=== PATIENT | female | born 1945 | race Two or more races ===

== ENCOUNTER 2024-03-06 00:09 | Emergency (ER) | payer OTHER, SELFPAY ==
[2024-03-06 00:20] VITALS: BP 149/78; PULSE 106; RESP 18; TEMP 37.3; O2SAT 97
--- NOTE | 2024-03-06 00:28 | PD.EDRME ---
Rapid Medical Screening Exam RME Arrival date/time: 03/06/24 00:09 79 year old female present to ED for c/o of rectal bleeding tonight I have greeted and performed a focused initial assessment of this patient. A comprehensive ED assessment and evaluation of the patient, analysis of all test results, and completion of the medical decision making process will be conducted by additional ED providers. Chief Complaint: General Adult/Misc Complain Vital signs: Vital Signs Temperature 99.2 F 03/06/24 00:20 Pulse Rate 106 H 03/06/24 00:20 Respiratory Rate 18 03/06/24 00:20 Blood Pressure 149/78 H 03/06/24 00:20 Pulse Oximetry (%) 97 03/06/24 00:20 Oxygen Delivery Method Room Air 03/06/24 00:20
[2024-03-06 01:08] LABS: Basophils % (Auto) 1 % (0-2.5); Eosinophils # (Auto) 0.2 Thou/mm3 (0.0-0.5); Eosinophils % (Auto) 5 % (0-10); Hematocrit 30.9 % (36.0-46.0); Immature Granulocytes % (Auto) 1 % (0-0); Immature Granulocytes Auto 0.02 Thou/mm3 (0.00-0.00); Lymphocytes # (Auto) 0.5 Thou/mm3 (1.0-4.8); Lymphocytes % (Auto) 12 % (10-50); Mean Corpuscular HGB Conc 35.6 g/dl (31.0-37.0); Mean Corpuscular Hemoglobin 32.2 pg (25.0-35.0); Mean Corpuscular Volume 90 fL (80-100); Monocytes # (Auto) 0.4 Thou/mm3 (0.0-0.8); Monocytes % (Auto) 9 % (0-12); Neutrophils # (Auto) 3.1 Thou/mm3 (1.8-7.7); Neutrophils % (Auto) 73 % (37-80); Nucleated Red Blood Cell % 0 /100 WBC (0); RDW Standard Deviation 47.5 fL (36.4-46.3); Red Blood Count 3.42 Miln/mm3 (4.00-5.20); White Blood Count 4.3 Thou/mm3 (3.6-11.0)
[2024-03-06 01:15] LABS: Platelet Count 68 Thou/mm3 (140-440); Slide Review Platelets confirmed
[2024-03-06 01:36] LABS: Alanine Aminotransferase 35 U/L (10-49); Albumin, Serum 3.4 gm/dL (3.4-4.8); Albumin/Globulin Ratio 1.1 (1.2-2.2); Alkaline Phosphatase 135 U/L (46-116); Anion Gap 7 (7-16); Aspartate Amino Transferase 49 U/L (0-34); BUN/Creatinine Ratio 12 Ratio (12-20); Bilirubin,Total 3.4 mg/dL (0.3-1.2); Blood Urea Nitrogen 12 mg/dL (9-23); Calcium 9.5 mg/dL (8.3-10.6); Chloride 107 mMol/L (98-107); Globulin 3.2 gm/dL (2.3-3.5); Glucose 203 mg/dL (74-106); Osmolality,Calculated 281 (275-295); Potassium 4.2 mMol/L (3.4-5.1); Sodium 138 mMol/L (136-145); Total Protein 6.6 gm/dL (5.7-8.2); eGFR 58 See Note
[2024-03-06 01:38] LABS: INR 1.3 (0.9-1.3); Partial Thromboplastin Time 26.8 Seconds (22.0-36.0); Prothrombin Time 13.5 Seconds (9.0-12.2)
[2024-03-06 04:27] VITALS: BP 137/77; PULSE 100; RESP 16; TEMP 36.9; O2SAT 96
--- NOTE | 2024-03-15 23:05 | EDNOTE_ITS ---
ED Abdominal Pain RME/HPI General Chief Complaint: Abdominal Pain Stated complaint: RECTAL BLEEDING Time seen by provider: 03/06/24 04:05 Arrival date/time: 03/06/24 00:09 RME / HPI RME / HPI narrative: 03/06/24 00:09 79 year old female present to ED for c/o of rectal bleeding tonight I have greeted and performed a focused initial assessment of this patient. A comprehensive ED assessment and evaluation of the patient, analysis of all test results, and completion of the medical decision making process will be conducted by additional ED providers. ------ Dr. Donovan?s Main ED Evaluation: 79yo breonna with pmhx DM, asthma presents to the ED for a chief complaint of rectal bleeding x tonight. 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 She denies any abdominal pain, N/V/D, fever, chills or any other associated symptoms. No known allergies. Related Data Home Medications ?Medication ?Instructions ?Recorded ?Confirmed alendronate 70 mg tablet 70 mg PO QWEEK 08/18/18 07/10/23 spironolactone 25 mg tablet 25 mg PO QDAY 08/18/18 07/10/23 atorvastatin 10 mg tablet 10 mg PO QDAY 07/10/23 07/10/23 furosemide 20 mg tablet 20 mg PO QDAY 07/10/23 07/10/23 metformin 500 mg tablet 500 mg PO QDAY 07/10/23 07/10/23 Previous Rx's ?Medication ?Instructions ?Recorded pantoprazole 20 mg tablet,delayed 20 mg PO QDAY #10 tabs 05/13/21 release (Protonix) hydrocortisone 2.5 % topical cream 1 applic VA QDAY PRN hemorrhoids 03/06/24 with perineal applicator #30 grams (Procto-Med HC) Allergies Allergy/AdvReac Type Severity Reaction Status Date / Time No Known Allergies Allergy Verified 09/02/23 12:20 Review of Systems Review of Systems Systems Reviewed: All systems reviewed, normal except as documented Past Medical History Past Medical History NEUROLOGIC: Negative Neurological Disorders or Seizures CARDIAC: Negative Cardiac Disorders, Hypercholesterolemia, Congestive Heart Failure or Hypertension RESPIRATORY: Positive Asthma; Negative Chronic Obstructive Pulmonary Disease (COPD) or Sleep Apnea GASTROINTESTINAL: Positive Gastrointestinal Disorders, Cirrhosis, Gastrointestinal Bleed and Esophageal Varices GENITOURINARY: Negative Genitourinary Disorders or Renal Disease REPRODUCTIVE: Positive Previous Pregnancies MUSCULOSKELETAL: Positive Musculoskeletal Disorders and Osteoporosis ENT: Positive Deafness ENDOCRINE: Positive Endocrine Disorders and Diabetes Mellitus Type 2; Negative Diabetes Mellitus Type 1 HEMATOLOGIC: Positive Anemia; Negative Blood Disorders or Clotting Problems PSYCHO/SOCIAL: Negative Depression or Anxiety OTHER HISTORY: Positive Blood Transfusions; Negative Autoimmune Disease, Falls, Blood Transfusion Reaction, Anesthesia Reactions, Organ Transplant, Chemotherapy, Radiation Therapy, Hyperbaric Therapy, MRSA, Chicken Pox or Cancer Family History FAMILY HISTORY: Negative Family Psychiatric Problems, Family Respiratory Disorders, Family Cardiac Disorders, Family Gastrointestinal Problems, Family Cancer, Family Surgery or Family Anesthesia Reaction Surgical History SURGICAL: Positive Ear Surgery; Negative Cardiac Surgery, Endocrine Surgery, Abdominal Surgery, Nephrectomy or Organ Transplant Social History SMOKING STATUS: Never smoker ED Exam Narrative Physical exam: GENERAL APPEARANCE: alert and oriented x 4, well-developed, well-nourished, no acute distress HEENT: Normocephalic, atraumatic; pupils equal, round, reactive to light; EOMI; mucous membranes pink, moist; oropharynx clear NECK: Supple LUNGS: CTABL; no wheezes, no rales, no rhonchi HEART: Regular rate, regular rhythm; normal S1, S2; no murmurs ABDOMEN: mildly distended; normal BS; soft, no tenderness, no guarding, no rebound; no masses, no organomegaly, no hernia BACK: no CVA tenderness RECTAL: Manager Of Distribution present. One external hemorrhoid that is non-thrombosed. Some skin tags noted, but no rectal bleeding. EXTREMITIES: atraumatic; no edema NEUROLOGIC: awake; alert and oriented x4; cranial nerves II-XII grossly intact; no focal sensory or motor deficits PSYCHIATRIC: appropriate mood and affect SKIN: warm, dry, mild jaundice; no rashes Course Quality Measures none Orders Category Date Time Status CBC Stat Lab 03/06/24 00:41 Completed CMP [Comprehensive Metabolic Panel] Stat Lab 03/06/24 00:41 Completed INR [Prothrombin Time with INR] Stat Lab 03/06/24 00:41 Completed PTT [Partial Thromboplastin Time] Stat Lab 03/06/24 00:41 Completed Vital Signs Vital signs: Vital Signs Temperature 99.2 F 03/06/24 00:20 Pulse Rate 106 H 03/06/24 00:20 Respiratory Rate 18 03/06/24 00:20 Blood Pressure 149/78 H 03/06/24 00:20 Pulse Oximetry (%) 97 03/06/24 00:20 Oxygen Delivery Method Room Air 03/06/24 00:20 Pulse ox is 97% on room air, which is normal according to my interpretation. Abdominal Pain MDM Patient data External records reviewed:: [facility] previous records (Per chart review, patient was seen here on 09/02/23 for shortness of breath.) Clinical information provided by:: patient Social determinants that could affect healthcare access:: none Patient has the following chronic illnesses:: DMII, asthma How is presenting disease/condition affected by chronic disease/condition?: uneffected by Evaluation data The following diagnostics were reviewed and interpreted by me:: lab results Lab and/or radiology exams considered but not ordered:: none Interpretation Summary: WBC count is normal, HnH is stable at 11.0/30.9, Glucose is elevated at 203, Total Bilirubin is elevated at 3.4, according to my interpretation. Medications / Prescriptions Medications or Prescriptions considered but not ordered:: none Medication administrations:: none Consultations Consultation(s) initiated? (list below): Yes Consultation #1 (Physician, Specialty, Details): Discussed case with [Dr. Conway] from [GI] regarding [consultation]. Discussed patients ED course, exam findings, labs, and radiology results. States the patient can follow-up in his office in a week. Diagnosis Differential diagnosis abdominal pain: gastroenteritis and other (lower GI bleed, hemorrhoids, colitis) Most likely diagnosis given after review of the tests above:: see below Admission Indicated Admission indicated?: not indicated Explain why admission is indicated or not indicated:: Patient is stable for outpatient follow-up. Admission Request Was there a request for admission?: No Disposition Plan Disposition Plan: Discharge Discharge Attestation Discharge Attestation: The patient and all family members were given an opportunity to ask questions and understood the discharge instructions. Discharge instructions specifically effects, indications for sooner follow up or return to the emergency department, and the expected course of current diagnosis. Patient condition: Stable Discharge Plan Plan Patient Disposition: HOME (Self Care) Prescriptions/Referrals Prescriptions/Med Rec: New hydrocortisone [Procto-Med HC] 2.5 % cream with perineal applicator 1 applic VA QDAY PRN (Reason: hemorrhoids) Qty: 30 0RF No Action alendronate 70 mg Tablet 70 mg PO QWEEK Rx Instructions: on thursday spironolactone 25 mg Tablet 25 mg PO QDAY pantoprazole [Protonix] 20 mg tablet,delayed release (DR/EC) 20 mg PO QDAY Qty: 10 0RF metformin 500 mg tablet 500 mg PO QDAY Patient Comments: TAKE 1 TABLET BY MOUTH ONCE A DAY WITH A MEAL atorvastatin 10 mg tablet 10 mg PO QDAY Patient Comments: TAKE 1 TABLET BY MOUTH ONCE A DAY furosemide 20 mg tablet 20 mg PO QDAY Patient Comments: TOME 1 TABLETA POR LA BOCA SAGE VEZ AL BLAINE CUANDO SE NECESITE Referrals: Opal Conway MD [Primary Care Provider] - In 1 week Problem List Clinical Impression: Hemorrhoids, Rectal bleeding, Cirrhosis, Abdominal distension, Pedal edema Patient/Caregiver Discharge Instructions Education Materials: ED Hemorrhoids Print Language: Urdu Stand Alone Forms: Chantelle Award Info., Patient Portal Info Letter
== END 2024-03-06 04:44 | disposition home or self-care (01) ==
PROVIDERS: Physician Assistant; Emergency Provider Emergency Medicine; PCP Specialist
DX: K62.5 Hemorrhage of anus and rectum (principal); K64.9 Unspecified hemorrhoids; K74.60 Unspecified cirrhosis of liver; R60.0 Localized edema
CPT/HCPCS: 36415; 80053; 85025; 85610; 85730; 99283

== ENCOUNTER → 2024-08-10 | Outpatient (CLI) | payer OTHER, SELFPAY | END | disposition home or self-care (01) | LOC: COPL 14:35 | PROVIDERS: PCP Family Medicine; Referring Provider Specialist; Visit Provider Specialist | DX: K75.81 Nonalcoholic steatohepatitis (NASH) (principal); K74.69 Other cirrhosis of liver | CPT/HCPCS: 36415; 82105 ==

== ENCOUNTER 2024-09-09 11:15 | Day surgery (SDC) | payer OTHER, SELFPAY ==
[2024-09-09] VITALS (8 sets, daily range): BP systolic 122–153; BP diastolic 57–85; PULSE 78–94; RESP 16–26; TEMP 36.2–36.4; O2SAT 97–100; BMI 22.4
[2024-09-09] MEDS: SODIUM CHLORIDE 0.9% 500 ML 500 ML 20 ML IV (13:11)
[2024-09-09] MEDS: fentaNYL CIT INJ 50 mCg/ML AMP 2ML (ASD USE ONLY) IVP (13:11)
[2024-09-09] MEDS: DiphenhydrAMINE INJ 50 MG/ML VIAL 25 MG IVP (13:11)
[2024-09-09] MEDS: MIDAZOLAM INJ 1 MG/ML VIAL 2 ML (ASD USE ONLY) 2 MG IVP (13:23)
--- NOTE | 2024-09-09 14:10 | SUR.PHASEII ---
1410: pt discharge to home via wheelchair. pt alert and oriented to name, place and time. no s/s of resp. distress or discomfort. no s/s of pain or discomfort. discharge instructions given to [id number] and pt, verbalizes understanding. all belongings brought given back to patient.
== END 2024-09-09 14:10 | disposition home or self-care (01) ==
PROVIDERS: PCP Family Medicine; Referring Provider Specialist; Visit Provider Specialist
PROC: (CPT 43239; principal; 2024-09-09 12:45)
DX: K31.89 Other diseases of stomach and duodenum (principal); D62 Acute posthemorrhagic anemia; K74.60 Unspecified cirrhosis of liver; I85.11 Secondary esophageal varices with bleeding; K76.6 Portal hypertension; K29.71 Gastritis, unspecified, with bleeding
CPT/HCPCS: 43235; J1200; J2250; J3010; J7040